=== PATIENT | female | born 2000 | race Hispanic/Latino ===

== ENCOUNTER → 2024-02-19 | Day surgery (SDC) | payer OTHER ==
[~2024-02-19] MED LIST: FAMOTIDINE20 MG PO; FENTANYL CITRATE/PF 100MCG/2 ML INJ ONE; LIDOCAINE HCL 2% LOCAL INJ 5 ML SDV VIAL INJ ONE; PROPOFOL IV EMULSION 10 MG/ML 20 ML VIAL ONE; PROPOFOL IV EMULSION 10 MG/ML 50 ML VIAL IV ONE; VOQUEZNA10 MG; [UNRECOGNIZED DRUG - OTHER]; [UNRECOGNIZED DRUG - OTHER]
[2024-02-19] MEDS: LACTATED RINGER'S 1,000 ML ONE (06:50)
[2024-02-19 10:35] VITALS: BP 110/70; PULSE 73; RESP 16; O2SAT 98
== END | disposition home or self-care (01) ==
LOC: OR 06:16
PROVIDERS: ATTEND Internal Medicine Gastroenterology
DX: K62.89 Other specified diseases of anus and rectum (principal); K29.50 Unspecified chronic gastritis without bleeding; K44.9 Diaphragmatic hernia without obstruction or gangrene; K60.1 Chronic anal fissure; K62.5 Hemorrhage of anus and rectum; K21.9 Gastro-esophageal reflux disease without esophagitis; K31.89 Other diseases of stomach and duodenum; K64.8 Other hemorrhoids; Z79.899 Other long term (current) drug therapy
CPT/HCPCS: 43239; 45378; 81025; 88305; 88342; J2003; J2704 ×2; J3010; J7121